=== PATIENT | female | born 1975 | race Caucasian/White ===

== ENCOUNTER 2017-11-07 11:30 | Observation (INO) ==
[2017-11-07] MEDS ORDERED: Ondansetron ODT 4 MG TAB.RAPDIS SL ONE (11:52)
[2017-11-07] MEDS ORDERED: *HR* FentaNYL (PF) 100 MCG/2 ML VIAL IVP ONE ×2 (11:52→13:55)
--- NOTE | 2017-11-07 11:55 | Emergency Department Note ---
Disposition Clinical Impression: Intractable headache Qualifiers: Headache type: unspecified Headache chronicity pattern: acute headache Qualified Code(s): R51 - Headache Disposition: Admitted As Inpatient Condition: Good Referrals: Gricel Matthews CNP [Primary Care Provider] - Forms: ED Satisfaction Letter Time of Disposition: 13:44 Headache HPI - General Chief Complaint: ED Headache Stated Complaint: intractable headache-sent from Time Seen by Provider: 11/07/17 11:43 Limitations: no limitations Nursing Notes Reviewed: Yes Vital Signs Reviewed: Yes - History of Present Illness HPI Narrative: 42-year-old female who comes in complaining of a headache that started 10 days ago. Initially started out with a or with some visual changes and what sounds to be a scotoma. It has been persistent since seen her family doctor twice went to the urgent care today she received Toradol and prescription for migraines without improvement. Pt Subjective Complaint: "migraine" Onset (ago): day(s) (10) Onset description: gradual Location: diffuse Pain Severity: severe Pain Scale: 5 Quality: aching Improves with: nothing Worsens with: none Context: occurred at rest Associated symptoms: Reports: nausea, vomiting Treatments prior to arrival: none - Related Data Home Medications Medication Instructions Recorded Confirmed Sertraline [Zoloft] 200 mg PO DAILY 03/06/16 11/07/17 Albuterol Sulfate [Ventolin Hfa] 2 puff IH Q6H PRN 11/07/17 11/07/17 Buspirone HCl [Buspar] 5 mg PO TID 11/07/17 11/07/17 SUMAtriptan succinate [Imitrex] 50 mg PO BID 11/07/17 11/07/17 Allergies Allergy/AdvReac Type Severity Reaction Status Date / Time Oxycodone [From Percocet] AdvReac Nausea Verified 11/07/17 13:45 All systems ED: reviewed and negative except as stated. Constitutional: Denies: fever, chills, weakness, weight change Eyes: Denies: eye pain, eye discharge, vision change ENT ED: Denies: ear pain, throat pain, dental pain, hearing loss, epistaxis, congestion, dysphagia Cardiovascular: Denies: chest pain, palpitations, dyspnea on exertion, edema, syncope Respiratory: Denies: cough, dyspnea, wheezes, hemoptysis, stridor Gastrointestinal: Denies: abdominal pain, nausea, vomiting, diarrhea, constipation, hematemesis, melena, hematochezia Genitourinary: Denies: dysuria, frequency, hematuria, discharge Musculoskeletal: Denies: back pain, neck pain, arthralgia, myalgia Integumentary: Denies: rash, abrasion, lesions Neurological: Denies: headache, weakness, numbness, paresthesias, confusion, abnormal gait, vertigo Psychiatric: Denies: anxiety, depression, suicidal thoughts, homicidal thoughts , auditory hallucinations, visual hallucinations Endocrine: Denies: fatigue Hematological/Lymphatic: Denies: easy bleeding, easy bruising Allergic/Immunologic: Denies: facial swelling, urticaria Headache PMH - Past Medical History Medical history: Reports: migraine Female Surgical History: Reports: orthopedic, other Psychiatric history: Reports: anxiety, depression - Social History Smoking Status: Never smoker Alcohol use: Reports: none Drug use: Reports: none Physical Exam - General Limitations: no limitations General appearance: alert - Head Head exam: atraumatic, normocephalic, normal inspection - Eye Eye exam: Present: normal appearance, PERRL, EOMI - ENT ENT exam: normal exam, normal oropharynx, mucous membranes moist - Neck Neck exam: Present: normal inspection, full ROM, trachea midline - Chest Chest inspection: Present: normal inspection, symmetric chest wall rise - Respiratory Respiratory exam: Present: normal lung sounds bilaterally - Cardiovascular Cardiovascular exam: Present: regular rate, normal rhythm, normal heart sounds - Abdominal Exam Abdominal exam: Present: soft, Non-Tender. Absent: tenderness, distention, guarding, rebound, rigidity - Extremities Exam Extremities exam: Present: normal inspection, full ROM. Absent: tenderness, pedal edema - Expanded Lower Extremity Exam Neurovascular/Tendon exam: Absent: motor deficit, sensory deficit, tendon deficit Gait: observed and normal - Back Exam Back exam: Present: normal inspection, full ROM. Absent: tenderness - Neurological Exam Neurological exam: Present: alert, oriented X3 - Psychiatric Psychiatric exam: Present: normal affect, normal mood - Skin Skin exam: Present: warm, dry, intact, normal color Course - Reevaluation(s) Reevaluation #1: 42-year-old with persistent headache for 10 days. She is tender over her temporal artery and her sedimentation rate elevated. Patient will be admitted for steroids pain control. I discussed a lumbar puncture with the patient at this point in time she declines that. Time: 13:43 - Consultations Consultation #1: Discussed with , admit to hospitalist IV steroids rheumatology consult Time: 13:15 Consultation #2: Discussed with Dr. Madsen rheumatology Time: 13:30 Consultation #3: Discussed with Dr. Mcdonald, admit Time: 13:43 Vital Signs Temperature 97.6 F 11/07/17 11:39 Pulse Rate 97 11/07/17 11:39 Respiratory Rate 20 11/07/17 11:39 Blood Pressure 160/92 11/07/17 11:39 O2 Sat by Pulse Oximetry 98 11/07/17 11:39 Temperature 97.6 F 11/07/17 11:39 Pulse Rate 81 11/07/17 13:20 Respiratory Rate 16 11/07/17 13:20 Blood Pressure 137/78 11/07/17 13:20 O2 Sat by Pulse Oximetry 97 11/07/17 13:20 Oxygen Delivery Oxygen Delivery Room Air Headache - Lab Data Result diagrams: 11/07/17 11:58 11/07/17 11:58 Lab Results 11/07/17 11/07/17 11/07/17 Range/Units 11:58 11:58 11:58 WBC 11.8 H (4.3-11.1) K/mcL RBC 5.43 H (3.82-4.97) M/mcL Hgb 11.9 (11.5-15.4) g/dL Hct 39.3 (35.3-44.9) % MCV 72.4 L (83.0-100.0) fL MCH 21.9 L (28.0-33.3) pg MCHC 30.3 L (31.6-35.5) g/dL RDW 17.9 H (11.5-14.5) % Plt Count 386 (140-400) K/mcL MPV 10.7 (9.4-12.4) fL Immature Gran % 0.3 (0-4) % Seg Neutrophils % 61.7 % Lymphocytes % 30.3 % Monocytes % 6.6 % Eosinophils % 0.6 % Basophils % 0.5 % Neutrophils # 7.3 (1.6-8.9) K/mcL Lymphocytes # 3.6 (0.6-4.6) K/mcL Monocytes # 0.8 (0.0-1.3) K/mcL Eosinophils # 0.1 (0.0-0.6) K/mcL Basophils # 0.1 (0.0-0.2) K/mcL ESR (0-15) mm/hr PT 12.1 (9.4-12.1) Seconds INR 1.1 Sodium 136 (136-145) mEq/L Potassium 3.6 (3.5-5.1) mEq/L Chloride 105 (98-107) mEq/L Carbon Dioxide 22 L (23-29) mEq/L BUN 9 (6-20) mg/dL Creatinine 0.71 (0.60-1.20) mg/dL Est GFR ( Amer) > 60 (> 60) Est GFR (Non-Af Amer) > 60 (> 60) BUN/Creatinine Ratio 13 (6-26) Glucose 79 (70-105) mg/dL Calculated Osmolality 280 (280-300) Calcium 9.1 (8.6-10.3) mg/dL Total Bilirubin 0.2 L (0.3-1.0) mg/dL Direct Bilirubin 0.1 (0.0-0.2) mg/dL Indirect Bilirubin 0.1 (0.0-1.2) mg/dL AST 15 (13-39) Units/L ALT 16 (7-52) Units/L Alkaline Phosphatase 97 (34-104) Units/L Serum Total Protein 8.0 (6.4-8.9) g/dL Albumin 4.5 (3.5-5.7) g/dL Globulin 3.5 (2.4-3.5) g/dL Albumin/Globulin Ratio 1.3 (1.1-2.2) 11/07/17 Range/Units 12:00 WBC (4.3-11.1) K/mcL RBC (3.82-4.97) M/mcL Hgb (11.5-15.4) g/dL Hct (35.3-44.9) % MCV (83.0-100.0) fL MCH (28.0-33.3) pg MCHC (31.6-35.5) g/dL RDW (11.5-14.5) % Plt Count (140-400) K/mcL MPV (9.4-12.4) fL Immature Gran % (0-4) % Seg Neutrophils % % Lymphocytes % % Monocytes % % Eosinophils % % Basophils % % Neutrophils # (1.6-8.9) K/mcL Lymphocytes # (0.6-4.6) K/mcL Monocytes # (0.0-1.3) K/mcL Eosinophils # (0.0-0.6) K/mcL Basophils # (0.0-0.2) K/mcL ESR 74 H (0-15) mm/hr PT (9.4-12.1) Seconds INR Sodium (136-145) mEq/L Potassium (3.5-5.1) mEq/L Chloride (98-107) mEq/L Carbon Dioxide (23-29) mEq/L BUN (6-20) mg/dL Creatinine (0.60-1.20) mg/dL Est GFR ( Amer) (> 60) Est GFR (Non-Af Amer) (> 60) BUN/Creatinine Ratio (6-26) Glucose (70-105) mg/dL Calculated Osmolality (280-300) Calcium (8.6-10.3) mg/dL Total Bilirubin (0.3-1.0) mg/dL Direct Bilirubin (0.0-0.2) mg/dL Indirect Bilirubin (0.0-1.2) mg/dL AST (13-39) Units/L ALT (7-52) Units/L Alkaline Phosphatase (34-104) Units/L Serum Total Protein (6.4-8.9) g/dL Albumin (3.5-5.7) g/dL Globulin (2.4-3.5) g/dL Albumin/Globulin Ratio (1.1-2.2) - EKG Data EKG attestation: Yes I reviewed and interpreted this EKG. EKG shows normal: sinus rhythm Rate: normal Rhythm: NSR [place]/QRS: normal Interpretation: no acute changes
[2017-11-07] MEDS ORDERED: *HR* FentaNYL (PF) 100 MCG/2 ML VIAL IM ONE ×2 (11:58→12:44)
[2017-11-07 12:17] LABS: Basophils # 0.1 K/mcL (0.0-0.2); Basophils % 0.5 %; Eosinophils # 0.1 K/mcL (0.0-0.6); Eosinophils % 0.6 %; Hematocrit 39.3 % (35.3-44.9); Hemoglobin 11.9 g/dL (11.5-15.4); Immature Granulocytes % 0.3 % (0-4); Lymphocytes # 3.6 K/mcL (0.6-4.6); Lymphocytes % 30.3 %; Mean Corpuscular HGB Conc 30.3 g/dL (31.6-35.5); Mean Corpuscular Hemoglobin 21.9 pg (28.0-33.3); Mean Corpuscular Volume 72.4 fL (83.0-100.0); Mean Platelet Volume 10.7 fL (9.4-12.4); Monocytes # 0.8 K/mcL (0.0-1.3); Monocytes % 6.6 %; Neutrophils # 7.3 K/mcL (1.6-8.9); Platelet Count 386 K/mcL (140-400); Red Blood Count 5.43 M/mcL (3.82-4.97); Red Cell Distribution Width 17.9 % (11.5-14.5); Segmented Neutrophils % 61.7 %
[2017-11-07 12:20] LABS: INR 1.1; Prothrombin Time 12.1 Seconds (9.4-12.1)
[2017-11-07 12:35] LABS: Alanine Aminotransferase 16 Units/L (7-52); Albumin 4.5 g/dL (3.5-5.7); Albumin/Globulin Ratio 1.3 (1.1-2.2); Alkaline Phosphatase 97 Units/L (34-104); Aspartate Amino Transferase 15 Units/L (13-39); BUN/Creatinine Ratio 13 (6-26); Bilirubin,Direct 0.1 mg/dL (0.0-0.2); Bilirubin,Indirect 0.1 mg/dL (0.0-1.2); Bilirubin,Total 0.2 mg/dL (0.3-1.0); Blood Urea Nitrogen 9 mg/dL (6-20); Calcium 9.1 mg/dL (8.6-10.3); Carbon Dioxide 22 mEq/L (23-29); Chloride 105 mEq/L (98-107); Globulin 3.5 g/dL (2.4-3.5); Glucose 79 mg/dL (70-105); Osmolality,Calculated 280 (280-300); Potassium 3.6 mEq/L (3.5-5.1); Sodium 136 mEq/L (136-145); eGFR For African Americans > 60 (> 60); eGFR For Non-African Americans > 60 (> 60)
[2017-11-07] MEDS ORDERED: methylPREDNISolone 125 MG/2 ML VIAL IVP ONE (13:19)
[2017-11-07] MEDS ORDERED: Naloxone 0.4 MG/ML INJ IVP PRN (15:11)
[2017-11-07] MEDS ORDERED: Ibuprofen 400 MG TABLET PO PRN (15:11)
--- NOTE | 2017-11-07 15:15 | Internal Med History&Physical ---
Date of Encounter: 11/07/17 Time of Encounter: 15:15 Internal Medicine - H&P: HPI Chief complaint: Headache Admitted From: Emergency Dept Plans for Post Hospital Care: Home History of present illness: Ms. Davis is a 42 year old female with no significant past medical history, who presents with intractable headache for at least the last 2 weeks. She reports having h/o- migraine headaches, but this pain is different in quality, she is not on specific migraine meds. She has been having diffuse headache, mostly in the occipital area, radiating to her neck and shoulders, 5/10 in intensity, constant, no aggravating or relieving factors, associated with nausea , scotomas and some blurred vision in both her eyes. No facial numbness, paresthesias, focal weakness. No constitutional symptoms- fever/chills, weight loss, myalgias. She presented twice to her primary care provider's office with these complaints and was prescribed Tylenol, NSAIDs, received intramuscular Toradol and also was given a prescription for sumatriptan, all of which failed to relieve her headache. Past Med Surg Social Fam HX - Past Medical History Source: patient Medical history: asthma, migraine Psychiatric history: anxiety, depression - Past Surgical History Surgical History: cholecystectomy, orthopedic, other (B/L knee arthroscopic surgeries) - Social History Smoking Status: Never smoker Smokeless Tobacco Status: No Alcohol use: none Drug use: none Occupational status: employed Current living situation: Home, With Family Activity Level: Independent ambulation Recent Out of Country Travel Within the Last 8 Weeks: No Exposure or Possible Exposure to Illness During Travel: No - Family History Grandmother Hx Family Neurologic Disorders: Yes (CVA) Mother Hx Family Cardiac Disorders: Yes (CAD) Father Hx Family Endocrine Disorder: Yes (DM) Internal Medicine - H&P: Meds Sertraline [Zoloft] 200 mg PO DAILY 03/06/16 [History] Albuterol Sulfate [Ventolin Hfa] 2 puff IH Q6H PRN 11/07/17 [History] Buspirone HCl [Buspar] 5 mg PO TID 11/07/17 [History] SUMAtriptan succinate [Imitrex] 50 mg PO BID 11/07/17 [History] 3 Allergy/AdvReac Type Severity Reaction Status Date / Time Oxycodone [From Percocet] AdvReac Nausea Verified 11/07/17 13:45 All Systems PM: A 10-system review of systems was performed and is negative for pertinent findings except as documented above in the HPI. - Constitutional Constitutional: no chills, no fever(s), no night sweats - EENT Eyes: no change in vision, no discharge, no pain, no photophobia Ears: no ear discharge, no ear pain, no tinnitus Nose, mouth and throat: no dysphagia, no nasal discharge, no neck pain, no sore throat - Cardiovascular Cardiovascular ROS IM: no chest pain, no diaphoresis, no dyspnea, no lightheadedness, no palpitations, no syncope - Respiratory Respiratory: no cough, no dyspnea, no wheezing, no excessive phlegm production - Gastrointestinal Gastrointestinal: nausea, no abdominal pain, no diarrhea, no hematemesis, no hematochezia, no melena, no vomiting - Genitourinary Genitourinary: no change in urinary stream, no dysuria, no flank pain, no hematuria - Musculoskeletal Musculoskeletal ROS IM: no numbness, no tingling - Integumentary Integumentary IM: no rash, no unusual bruising - Neurological Neurological ROS: headache(s) - Hematologic/Lymphatic Hematologic/Lymphatic: no easy bruising - Constitutional Vitals: Temp Pulse Resp BP Pulse Ox 97.6 F 81 16 143/80 97 11/07/17 11:39 11/07/17 13:20 11/07/17 14:35 11/07/17 14:35 11/07/17 13:20 General appearance: Present: A&O X 3, answers questions appropriately - Head Head exam: Present: atraumatic, normocephalic Additional comments: tenderness over B/L temporal area, diffuse cranial area, posterior neck and shoulders - Eye Eye exam: Present: PERRL, conjuntiva pink, sclera anicteric Pupils: Present: PERRL - Respiratory Respiratory exam: Present: CTAB. Absent: accessory muscle use, rales, rhonchi, wheezes - Cardiovascular Cardiovascular exam: Present: RRR, +S1, +S2. Absent: diastolic murmur, gallop, rubs, systolic murmur - GI/Abdominal GI/Abdominal exam: Present: normal bowel sounds, soft, no peritoneal signs. Absent: distended, tenderness - Extremities Exam Extremities exam: Present: full ROM, warm, radial pulses palpable and symmetrical. Absent: calf tenderness, cyanotic, pedal edema - Neurological Exam Neurological exam: Present: CN II-XII intact, oriented X3, no focal deficits. Absent: pronater drift, facial droop, speech deficit - Skin Skin exam: Present: dry, intact Internal Med - H&P Results - Labs CBC & Chem 7: 11/07/17 11:58 11/07/17 11:58 - Assessment and plan (1) Intractable headache Current Visit: Yes Status: Acute Assessment and plan: coul;d be complex migraine? She does have elevated ESR at 75; CT head showed no acute abnormality; case d/w Neurology - atypical presentation, agree with IV pulse dose steroids, will start 500mg IV Solumedrol; recommend MRI brain. Case d/w Rheumatology - agree with steroids, no urgent temporal artery biopsy needed, patiet will receive early f/up with Rheumatology office; I have emailed patient's details to him as he is out of town today; Continue PRN Tylenol and NSAIDs for pain control; DVT prophylaxis with s.c Heparin; Qualifiers: Headache type: unspecified Headache chronicity pattern: acute headache Qualified Code(s): R51 - Headache (2) Asthma Current Visit: Yes Status: Chronic Qualifiers: Asthma severity: mild Asthma persistence: intermittent Asthma complication type: uncomplicated Qualified Code(s): J45.20 - Mild intermittent asthma, uncomplicated (3) Anxiety and depression Current Visit: Yes Status: Chronic Assessment and plan: resume home meds; - Time Spent With Patient Total time spent is greater than 50% in coordination of care (as documented) at patient's floor/unit and/or counseling patient:
[2017-11-07] MEDS: Ringers Solution, Lactated 1,000 ML IVC SCH (16:08)
[2017-11-07] MEDS: traMADol 50 MG TABLET PO PRN ×2 (16:08→22:06)
[2017-11-07] MEDS ORDERED: SUMAtriptan succinate 50 MG TABLET PO PRN (21:00)
[2017-11-07] MEDS: *HR* Heparin 5,000 UNIT/ML VIAL SQ SCH (22:06)
--- NOTE | 2017-11-07 23:33 | Neurology - Consult Note ---
Date of Encounter: 11/07/17 Time of Encounter: 15:00 Assessment and Plan (1) Intractable headache Current Visit: Yes Status: Acute Overall speaking i am not convinced that she has temporal arteritis due to her age and the presentation is more consistent with status migrainosus than temporal arteritis. She does not seem to have localized temporal tenderness but rather diffuse skull allodynia which can also occur with a full blown migraine attack. She has no systemic symptoms and no fever and no loss of appetite and no jaw claudication. The presence of prodromal visual kleidoscopic vision is also quite typical migraine with aura. I agree with IV steroid therapy to break the migraine attack, since she probably already at the peak of her status migrainosus and treatment is otherwise symptomatic and supportive. Sumatriptn SC 6mg prn along with antiemetic can be beneficial. i would suggest that we obtain MRI of brain without contrast to rule out intracranial abnormality. I would hold off the temporal artery biopsy and would suggest rheumatology consult to assess the source of elevated ESR. May be this is related to acute inflammatory process from a viral illness, especially with presence of diffuse neck shoulder and muscle pain. Will follow in AM. Total time spent on this case was approximately 55 minutes Qualifiers: Headache type: unspecified Headache chronicity pattern: acute headache Qualified Code(s): R51 - Headache History of Present Illness Chief complaint: headaches, neck pain and elevated ESR HPI: Ms. Davis is a 42 year old female with PMH significant for chronic migraines, dysthymic disorder, astham who presented to the ER due to recent onset of persistent headaches. Patient provided her HPI. she states that she used to have migraine like headaches here and there for many years and she has not seen a neurologist and usually treatment by her PCP with over the counter medications. She describes her migraines as those intermittent headaches that can be associated with nausea but these migraines are not associated with visual changes and they are usually better in the morning after sleeping. about one or two weeks she started experiencing more severe headaches. she states that she first experienced visual disturbances described as seeing Kleidoscopic vision for about an hour and then as it disappeared the headaches followed. She also has these intermittent seeing floater even at present time. She saw her PCP one week ago who suggested Toradol injection which helped the headaches but eventually the headaches came back this time she developed neck pain shoulder pain, ringing to her ears therefore she came to ER again today. She was found to have tender spot on her yazidi region and ESR level of 74. It was concerned that she may have temporal arteritis and she is admitted onto medical floor for further evaluation and treatment. The tender spot is actually quite diffuse and her whole head hurts. she maintains her mental state and does not appear to be in any acute distress. She has no fever and no jaw claudication. No loss of appetite. Past Med Surg Social Fam HX - Past Medical History Medical history: asthma, migraine Psychiatric history: anxiety, depression - Past Surgical History Surgical History: cholecystectomy, orthopedic, other (B/L knee arthroscopic surgeries) - Social History Smoking Status: Never smoker Smokeless Tobacco Status: No Alcohol use: none Drug use: none - Family History Grandmother Hx Family Neurologic Disorders: Yes (CVA) Mother Hx Family Cardiac Disorders: Yes (CAD) Father Hx Family Endocrine Disorder: Yes (DM) Medications and Allergies RX: Sertraline [Zoloft] 200 mg PO DAILY 03/06/16 [History] Albuterol Sulfate [Ventolin Hfa] 2 puff IH Q6H PRN 11/07/17 [History] Buspirone HCl [Buspar] 5 mg PO TID 11/07/17 [History] SUMAtriptan succinate [Imitrex] 50 mg PO BID 11/07/17 [History] 3 Allergy/AdvReac Type Severity Reaction Status Date / Time Oxycodone [From Percocet] AdvReac Nausea Verified 11/07/17 13:45 All Systems: The remainder of the systems were reviewed and are negative Physical Examination - Vital Signs Vital Signs: Initial Vital Signs Temp Pulse Resp BP Pulse Ox 97.6 F 97 20 160/92 98 11/07/17 11:39 11/07/17 11:39 11/07/17 11:39 11/07/17 11:39 11/07/17 11:39 - Constitutional General appearance: comfortable - Neurologic Detailed motor examination: full strength in all major muscle groups Motor examination - right side: 5/5: deltoids, biceps, triceps, wrist flexion, wrist extension, first coat sander, hip flexors, tibialis Anterior, quadriceps, toe extension (EHL), plantarflexion Motor examination - left side: 5/5: deltoids, biceps, triceps, wrist flexion, wrist extension, hip flexors, first coat sander, quadriceps, tibialis Anterior, toe extension (EHL), plantarflexion Reflexes: Biceps: 2+, Triceps: 2+, Brachioradialis: 2+, Patella: 2+, Achilles: 2 + Mental Status Examination: awake, alert, oriented to person, oriented to place, oriented to time, follows commands appropriately, answers questions appropriately, no agnosia, no aphasia, no aproxia Cranial nerve examination: PERRL, EOMI, visual fernandez intact, corneal reflexes brisk symmetrically, sensory to face intact, mastication intact, no facial asymmetry is present, no dysarthria, hearing is intact symmetrically, soft palate elevates bilaterally upon phonation, gag reflex intact, flexes SCM and trapezius muscles symmetrically with full power, tongue protrudes midline, no atrophy or facial fasiculations present Cerebellar examination: no dysmetria, performs finger to nose and heel to harman symmetrically without ataxia, no gait ataxia, no truncal ataxia, no difficulty with rapid alternating movements Results - Laboratory Findings CBC and BMP: 11/07/17 11:58 11/07/17 11:58 Abnormal lab findings: Abnormal lab results WBC 11.8 K/mcL (4.3-11.1) H 11/07/17 11:58 RBC 5.43 M/mcL (3.82-4.97) H 11/07/17 11:58 MCV 72.4 fL (83.0-100.0) L 11/07/17 11:58 MCH 21.9 pg (28.0-33.3) L 11/07/17 11:58 MCHC 30.3 g/dL (31.6-35.5) L 11/07/17 11:58 RDW 17.9 % (11.5-14.5) H 11/07/17 11:58 ESR 74 mm/hr (0-15) H 11/07/17 12:00 Carbon Dioxide 22 mEq/L (23-29) L 11/07/17 11:58 Total Bilirubin 0.2 mg/dL (0.3-1.0) L 11/07/17 11:58 - Diagnostic Findings Additional findings: HISTORY: ORDERING SYSTEM PROVIDED HISTORY: headache FINDINGS: BRAIN/VENTRICLES: There is no acute intracranial hemorrhage, mass effect or midline shift. No abnormal extra-axial fluid collection. The alejo-white differentiation is maintained without evidence of an acute infarct. There is no evidence of hydrocephalus. ORBITS: The visualized portion of the orbits demonstrate no acute abnormality. SINUSES: The visualized paranasal sinuses and mastoid air cells demonstrate no acute abnormality. SOFT TISSUES/SKULL: No acute abnormality of the visualized skull or soft tissues. CT/CT head/brain wo con IMPRESSION: No CT evidence for acute intracranial process. D/ / Tavo Ibrahim / Tavo Ibrahim Consult Discharge Plan - Plan Referrals: Gricel Matthews, [employer]LECT[employer] ENGINEER [Primary Care Provider] -
[2017-11-08] MEDS: traMADol 50 MG TABLET PO PRN ×2 (04:47→12:18)
[2017-11-08] MEDS: *HR* Heparin 5,000 UNIT/ML VIAL SQ SCH (04:47)
[2017-11-08 06:18] LABS: Basophils % 0.2 %; Hematocrit 35.8 % (35.3-44.9); Hemoglobin 10.9 g/dL (11.5-15.4); Immature Granulocytes % 0.6 % (0-4); Lymphocytes # 1.7 K/mcL (0.6-4.6); Lymphocytes % 14.1 %; Mean Corpuscular HGB Conc 30.4 g/dL (31.6-35.5); Mean Corpuscular Hemoglobin 22.1 pg (28.0-33.3); Mean Corpuscular Volume 72.6 fL (83.0-100.0); Mean Platelet Volume 10.9 fL (9.4-12.4); Monocytes # 0.7 K/mcL (0.0-1.3); Monocytes % 5.9 %; Neutrophils # 9.7 K/mcL (1.6-8.9); Platelet Count 346 K/mcL (140-400); Red Blood Count 4.93 M/mcL (3.82-4.97); Red Cell Distribution Width 17.2 % (11.5-14.5); Segmented Neutrophils % 79.2 %
[2017-11-08 06:37] LABS: BUN/Creatinine Ratio 16 (6-26); Blood Urea Nitrogen 11 mg/dL (6-20); Calcium 8.9 mg/dL (8.6-10.3); Carbon Dioxide 22 mEq/L (23-29); Chloride 106 mEq/L (98-107); Glucose 146 mg/dL (70-105); Magnesium 2.2 mg/dL (1.6-2.6); Osmolality,Calculated 282 (280-300); Potassium 3.8 mEq/L (3.5-5.1); Sodium 135 mEq/L (136-145); eGFR For African Americans > 60 (> 60); eGFR For Non-African Americans > 60 (> 60)
[2017-11-08] MEDS: Ringers Solution, Lactated 1,000 ML IVC SCH (07:48)
[2017-11-08] MEDS ORDERED: methylPREDNISolone 125 MG/2 ML VIAL IVP SCH (09:00)
--- NOTE | 2017-11-08 13:02 | Electrocardiograph Report ---
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
[2017-11-08 14:32] VITALS: BP 144/86
[2017-11-08] MEDS ORDERED: predniSONE 20 MG TABLET PO ONE (15:11)
--- NOTE | 2017-11-08 15:35 | Discharge Summary ---
- NOTES TO OUTPATIENT PROVIDER Notes to Outpatient Provider: Presented with severe migraine headaches, low suspicion for temporal arteritis. Discharged on prednisone taper Date of Encounter: 11/09/17 Time of Encounter: 15:34 - Discharge Diagnosis (1) Intractable headache Priority: Primary Status: Resolved Qualifiers: Headache type: unspecified Headache chronicity pattern: acute headache Qualified Code(s): R51 - Headache (2) Asthma Priority: Secondary Status: Chronic Qualifiers: Asthma severity: mild Asthma persistence: intermittent Asthma complication type: uncomplicated Qualified Code(s): J45.20 - Mild intermittent asthma, uncomplicated (3) Anxiety and depression Priority: Secondary Status: Chronic Hospital course: Ms. Davis is a 42 year old female with no significant past medical history, who presents with intractable headache for at least the last 2 weeks. She reports having h/o- migraine headaches, but this pain is different in quality, she is not on specific migraine meds. She has been having diffuse headache, mostly in the occipital area, radiating to her neck and shoulders, 5/10 in intensity, constant, no aggravating or relieving factors, associated with nausea , scotomas and some blurred vision in both her eyes. No facial numbness, paresthesias, focal weakness. No constitutional symptoms- fever/chills, weight loss, myalgias. She presented twice to her primary care provider's office with these complaints and was prescribed Tylenol, NSAIDs, received intramuscular Toradol and also was given a prescription for sumatriptan, all of which failed to relieve her headache. Work up was negative, ESR was 74. Brain MRI showed no acute problems Neurologist was consulted and recommendation was for sumatriptan with antiemetic which patient responded to She is seen and evaluated with friend at bedside, without any new symptoms, her symptoms have improved remarkably. She is medically stable to be discharged home on imitrex and chlorpromazine. Follow up with neurologist and rake operator Discharge discussed with: patient, nurse, warehouse consultant - Time Spent with Patient Total time spent providing and/or coordinating discharge services: Less than 30 minutes - Discharge Medications Prescriptions: chlorproMAZINE [Thorazine] 12.5 mg PO BID #30 tablet predniSONE [PredniSONE] 40 mg PO DAILY #20 tablet Home Medications: Sertraline [Zoloft] 200 mg PO DAILY 03/06/16 [History] Albuterol Sulfate [Ventolin Hfa] 2 puff IH Q6H PRN 11/07/17 [History] Buspirone HCl [Buspar] 5 mg PO TID 11/07/17 [History] SUMAtriptan succinate [Imitrex] 50 mg PO BID 11/07/17 [History] Ibuprofen [Motrin] 400 mg PO Q6HR PRN tablet 11/08/17 [Rx] chlorproMAZINE [Thorazine] 12.5 mg PO BID #30 tablet 11/08/17 [Rx] predniSONE [PredniSONE] 40 mg PO DAILY #20 tablet 11/08/17 [Rx] Allergies/Adverse Reactions: 3 Allergy/AdvReac Type Severity Reaction Status Date / Time Oxycodone [From Percocet] AdvReac Nausea Verified 11/07/17 13:45 Date of admission: 11/07/17 14:01 Primary care physician: Gricel Matthews [employer]AM [employer] Discharging clinician: Bart Smallwood Anticipated date of discharge: 11/09/17 - Constitutional Vitals: Temp Pulse Resp BP Pulse Ox 98.2 F 83 16 144/86 97 11/08/17 14:31 11/08/17 14:31 11/08/17 14:31 11/08/17 14:31 11/08/17 14:31 General appearance: Present: A&O X 3, morbidly obese, no acute distress, answers questions appropriately - Head Head exam: Present: atraumatic, normocephalic - Eye Eye exam: Present: PERRL, conjuntiva pink, sclera anicteric Pupils: Present: PERRL - Neck Neck exam general surgery: Present: supple, trachea midline. Absent: lymphadenopathy - Respiratory Respiratory exam: Present: CTAB. Absent: accessory muscle use, rales, rhonchi, wheezes - Cardiovascular Cardiovascular exam: Present: RRR, +S1, +S2. Absent: diastolic murmur, gallop, rubs, systolic murmur - GI/Abdominal GI/Abdominal exam: Present: normal bowel sounds, soft, no peritoneal signs. Absent: distended, tenderness - Extremities Exam Extremities exam: Present: warm, radial pulses palpable and symmetrical. Absent : calf tenderness, cyanotic, pedal edema - Neurological Exam Neurological exam: Present: alert, CN II-XII intact, oriented X3, no focal deficits. Absent: pronater drift, facial droop, speech deficit - Skin Skin exam: Present: dry, intact - Patient Status Disposition: Home, Self-Care Condition: Good Functional capacity at discharge: independent ambulation Overall status at discharge: patient is progressing back to baseline - Discharge Instructions Follow Up With: Gricel Matthews, BABS [Primary Care Provider] - Vanessa Reyes MD [Partnered Physician] - (please call for follow up ) Forms: Work/School Release, Jury Excuse, Inpatient Work/School Release, Work /School Release - Diet and Activity Activity: resume usual activities as tolerated Diet: regular diet
[2017-11-08] MEDS ORDERED: chlorproMAZINE 25 MG TABLET PO SCH (21:00)
== END 2017-11-08 16:25 | disposition home or self-care (01) ==
LOC: 3ANU 11:30 → EMEROO 11:30 → 3ANU 14:39
PROVIDERS: ADMIT Internal Medicine; ATTEND Internal Medicine